=== PATIENT | female | born 1950 | race Caucasian/White ===

== ENCOUNTER 2023-01-09 21:17 | Emergency (ER) | payer MEDICARE, OTHER, SELFPAY ==
--- NOTE | 2023-01-09 21:21 | XRR_ITS ---
PROCEDURE INFORMATION: Exam: XR Right Wrist Exam date and time: 01/09/2023 9:36 PM Age: 72 years old Clinical indication: Injury or trauma; Fall; Blunt trauma (contusions or hematomas); Shoulder and wrist; Right TECHNIQUE: Imaging protocol: Radiologic exam of the right wrist. Views: 3 or more views. COMPARISON: No relevant prior studies available. FINDINGS: Bones/joints: Moderate to severe osteoarthritis base of thumb. Comminuted intra-articular fracture lucencies distal radius. Dorsal displacement and angulation deformity of bone fragments. Soft tissues: Soft tissue swelling and deformity. XR/XR wrist RT min 3V* [id number] IMPRESSION: Right distal radius fracture.
[2023-01-09 21:29] VITALS: BP 155/81; PULSE 87; RESP 18; TEMP 36.6; O2SAT 98; BMI 24.2
[2023-01-09 21:32] VITALS: BP 159/89; PULSE 86; RESP 18; TEMP 36.5; O2SAT 99
--- NOTE | 2023-01-09 21:34 | XRR_ITS ---
PROCEDURE INFORMATION: Exam: XR Right Shoulder Exam date and time: 01/09/2023 9:42 PM Age: 72 years old Clinical indication: Injury or trauma; Fall; Blunt trauma (contusions or hematomas); Shoulder and wrist; Right TECHNIQUE: Imaging protocol: Radiologic exam of the right shoulder. Views: 2 or more views. COMPARISON: No relevant prior studies available. FINDINGS: Bones/joints: Acromioclavicular joint hypertrophic osseous spurring. Negative for fracture. Normal joint alignment. Negative for bone erosion. Soft tissues: Normal. XR/XR shoulder RT min 2V* [id number] IMPRESSION: Negative for acute pathology.
--- NOTE | 2023-01-09 22:02 | ED_ITS ---
HPI - Fall General: Chief Complaint: Fall Stated Complaint: right wrist injury Time Seen by Provider: 01/09/23 21:48 Source: patient Mode of arrival: ambulatory Limitations: no limitations History of Present Illness: 72-year-old female states she was rollerskating tonight and fell. She fell onto her right arm she has right wrist pain with obvious deformity she rates that pain a 2 out of 10 she has some mild right shoulder pain she denies any other injuries denies hitting her head. Associated symptoms-after fall: Denies abdominal pain, chest pain, headache(s) or neck pain Review of Systems Const: Denies: fever(s), chills, body aches or change in appetite Eyes: Denies: blurry vision or eye discomfort ENMT: Denies: throat pain or dental pain Card: Denies: chest pain Resp: Denies: dyspnea GI: Denies: abdominal pain, nausea, vomiting or diarrhea : Denies: dysuria Musc: Denies: neck pain or back pain Skin/Breast: Denies: rash Neuro: Denies: headache(s) Psych: Denies: depression Ari/Lymph: Denies: easy bruising All/Imm: Denies: urticaria Physical Exam Const: COMMON NORMALS: no acute distress, patient oriented x3 and healthy appearing HENMT: COMMON NORMALS: normocephalic and atraumatic HEAD & SCALP: normocephalic and atraumatic Eye: COMMON NORMALS: conjunctivae normal CONJUNCTIVA: Yes conjunctivae normal Neck/C-Spine: COMMON NORMALS: full ROM and supple Chest: COMMONS NORMALS: normal inspection of the chest Resp: COMMON NORMALS: normal respiratory effort Cardio: COMMON NORMALS: regular rate and No murmurs present (Cardio) RATE: regular rate Extremity: COMMON NORMALS: full ROM NARRATIVE EXTREMITY EXAM: Tenderness over right wrist with obvious deformity distal pulses and sensation intact Neuro: COMMON NORMALS: patient oriented x3, moves all extremities and no focal motor deficits Psych: COMMON NORMALS: mental status grossly normal, Normal thought process present and cooperative THOUGHT PROCESS: Normal thought process present Skin: COMMON NORMALS: no rashes or lesions noted and no wounds GENERAL SKIN EXAM: no rashes or lesions noted Course Vital Signs: Vital signs: Vital Signs Temperature 97.7 F 01/09/23 21:32 Pulse Rate 86 01/09/23 21:32 Respiratory Rate 18 01/09/23 21:32 Blood Pressure 159/89 01/09/23 21:32 Pulse Oximetry 99 01/09/23 21:32 Oxygen Delivery Me thod Room Air 01/09/23 21:32 MDM - Fall Medical Decision Making Patient presents here with fall with right wrist fracture she has obvious def ormity to that wrist x-ray shows a fracture. Did place in a splint sling will get follow-up orthopedics. Lab Data Radiology Impressions Wrist X-Ray 01/09/23 21:21 IMPRESSION: Right distal radius fracture. Shoulder X-Ray 01/09/23 21:34 IMPRESSION: Negative for acute pathology. Discharge Plan Discharge Patient Disposition: Home Clinical Impression: Fracture of wrist Qualifiers: Encounter type: initial encounter Fracture type: closed Laterality: right Qualified Code(s): S62.101A - Fracture of unspecified carpal bone, right wrist, initial encounter for closed fracture Condition: Stable Discharge Orders: Discharge ED (Routine); Ordered 01/09/23 Ordered By: Echo Reyez Referrals: Yfn Howell DO [Physician] - 1-3 days Discharge Diet: Advance as tolerated Discharge Activity: Resume usual activity Patient Instructions: Wrist Fracture in Adults (ED) Coding Level of Care Code ED Shipping And Receiving Assistant for Stephen Arndt
[2023-01-09 23:22] VITALS: BP 152/81; PULSE 78; RESP 18; O2SAT 100
--- NOTE | 2023-01-11 08:33 | DCPLANNER ---
Addendum entered by Ceci Saldana 01/14/23 07:32: Patient attended appointment at ortho Addendum entered by Ceci Saldana 01/11/23 14:59: Patient has a follow up appointment scheduled for Thursday, January 12, 2023 at 11:[address] Howell at ortho. Original Note: publications manager had message to schedule a follow up appointment for patient with ortho. publications manager sent patients information to the front office staff at ortho. Patients information will be printed and reviewed. Clinic will call patient with appointment information.
--- NOTE | 2023-01-11 14:57 | DCPLANNER ---
Addendum entered by Ceci Saldana 01/11/23 16:08: Patient called rn case management back, declining getting a primary care at this time. Original Note: junior assistant manager called patient due to no primary care physician - no answer at this time.
== END 2023-01-09 23:30 | disposition home or self-care (01) ==
PROVIDERS: Emergency Provider Emergency Medicine
DX: S52.501A Unspecified fracture of the lower end of right radius, initial encounter for closed fracture (principal); W19.XXXA Unspecified fall, initial encounter; Y93.51 Activity, roller skating (inline) and skateboarding
CPT/HCPCS: 29125; 73030; 73110; 99283

== ENCOUNTER 2023-01-10 18:46 | Emergency (ER) | payer MEDICARE, OTHER, SELFPAY ==
[2023-01-10 19:15] VITALS: BP 155/83; PULSE 78; RESP 16; TEMP 36.6; O2SAT 97; BMI 25.0
[2023-01-10 19:21] VITALS: BP 168/84; PULSE 73; TEMP 36.6; O2SAT 98
--- NOTE | 2023-01-10 20:54 | W.ED.EXTPRO ---
HPI - Extremity Problem General: Chief complaint: Extremity Injury, Upper Stated complaint: Broken wrist - Swelling of Arm Time Seen by Provider: 01/10/23 20:00 Source: patient Mode of arrival: ambulatory Limitations: no limitations History of Present Illness: 72-year-old female is seen here yesterday she had a wrist fracture she is placed in a splint states today she noticed some swelling to her upper arm along with her hand went to get checked out she denies any increase in pain denies any fevers. Denies any new injuries Associated symptoms: Deny chest pain, fever(s) or rash Review of Systems Const: Denies: fever(s), chills, body aches or change in appetite ENMT: Denies: throat pain or dental pain Card: Denies: chest pain Resp: Denies: dyspnea GI: Denies: abdominal pain, nausea, vomiting or diarrhea Musc: Reports: extremity swelling; Denies: neck pain or back pain Skin/Breast: Denies: rash Neuro: Denies: headache(s) Physical Exam Const: COMMON NORMALS: no acute distress, patient oriented x3 and healthy appearing HENMT: COMMON NORMALS: normocephalic and atraumatic HEAD & SCALP: normocephalic and atraumatic Eye: COMMON NORMALS: conjunctivae normal CONJUNCTIVA: Yes conjunctivae normal Neck/C-Spine: COMMON NORMALS: full ROM and supple Chest: COMMONS NORMALS: normal inspection of the chest Resp: COMMON NORMALS: normal respiratory effort Cardio: COMMON NORMALS: regular rate and No murmurs present (Cardio) RATE: regular rate GI: INSPECTION: Yes normal to inspection Extremity: COMMON NORMALS: full ROM NARRATIVE EXTREMITY EXAM: sugar-tong splint in place to right arm she does have swelling in her right hand no pain good cap refill Neuro: COMMON NORMALS: patient oriented x3, moves all extremities and no focal motor deficits Psych: COMMON NORMALS: mental status grossly normal, Normal thought process present and cooperative THOUGHT PROCESS: Normal thought process present Skin: COMMON NORMALS: no rashes or lesions noted and no wounds GENERAL SKIN EXAM: no rashes or lesions noted Course Vital Signs: Vital signs: Vital Signs Temperature 97.8 F 01/10/23 19:21 Pulse Rate 73 01/10/23 19:21 Respiratory Rate 16 01/10/23 19:15 Blood Pressure 168/84 01/10/23 19:21 Pulse Oximetry 98 01/10/23 19:21 Oxygen Delivery Me thod Room Air 01/10/23 19:21 MDM - Extremity (Nontraumatic) Medical Decision Making Patient presents here with right wrist and arm swelling she is seen here yesterday for wrist fracture she has no signs of compartment syndrome no pain she has good cap refill she does have some swelling in her hand she is to keep her arm elevated and to ice she is well-appearing and stable for discharge at this time Medical Records I reviewed the patient's medical records. Discharge Plan Discharge Patient Disposition: Home Clinical Impression: Swelling of right upper extremity, Fracture of wrist Condition: Stable Discharge Orders: Discharge ED (Routine); Ordered 01/10/23 Ordered By: Echo Reyez Discharge Diet: Advance as tolerated Discharge Activity: Resume usual activity Patient Instructions: Opioid Safety, Pain Management Coding Level of Care Code ED Information Security Systems Instructor for Stephen Arndt
[2023-01-10 21:04] VITALS: PULSE 71
[2023-01-10 21:16] VITALS: PULSE 78; RESP 17; O2SAT 97
== END 2023-01-10 21:17 | disposition home or self-care (01) ==
PROVIDERS: Emergency Provider Emergency Medicine
DX: M79.89 Other specified soft tissue disorders (principal); S62.101A Fracture of unspecified carpal bone, right wrist, initial encounter for closed fracture; X58.XXXA Exposure to other specified factors, initial encounter
CPT/HCPCS: 99281

== ENCOUNTER → 2023-01-12 10:57 | Outpatient (BNVA) | payer MEDICARE, OTHER, SELFPAY | PROVIDERS: Visit Provider Student in an Organized Health Care Education/Training Program | DX: S52.571A Other intraarticular fracture of lower end of right radius, initial encounter for closed fracture; W18.30XA Fall on same level, unspecified, initial encounter; Y93.51 Activity, roller skating (inline) and skateboarding | CPT/HCPCS: 26605; 29075; 99204 ==

== ENCOUNTER 2023-01-20 06:38 | Day surgery (SDC) | payer MEDICARE, OTHER, SELFPAY ==
[2023-01-19 08:39] VITALS: BMI 24.3
[2023-01-20] VITALS (15 sets, daily range): BP systolic 121–181; BP diastolic 60–89; PULSE 75–90; RESP 15–23; TEMP 36.2–36.5; O2SAT 95–100
--- NOTE | 2023-01-20 | XR_ITS ---
WS: [id number] Right wrist, C-arm fluoroscopy, 01/20/2023 Clinical Data: ORIF right distal radius Comparison: Right wrist, 01/09/2023 Findings: There is internal fixation of the distal right radial fracture with a plate and multiple screws. The distal right ulna is intact. XR/XR wrist RT 2V [id number] Impression: Internal fixation of distal right radial fracture.
--- NOTE | 2023-01-20 06:52 | P.HPUD_ITS ---
Surgery/Procedure H&P Update DATE OF PROCEDURE: January 20, 2023 DATE H&P PERFORMED: 01/12/23 CHANGES TO PREVIOUS DOCUMENTATION: None. No changes since HPI/office visit on 01/12/2023. Patient has a significantly displaced angulated intra-articular right distal radius fracture with Dr. About treatment options she understands risk benefits complication alternatives with surgery elects proceed with surgical invention. All questions answered. PREOP DIAGNOSIS: Right distal radius fracture PRIMARY INDICATION FOR PROCEDURE: Right distal radius fracture intra-articular PLANNED PROCEDURE: Operation Date: 01/20/23 09:30 Proposed Procedures p Right Distal Radius Open Reduction Internal Fixation 09594, S5 2.502A,T14.8XXA(Right) - Yfn Howell DO
[2023-01-20] MEDS: acetaminophen 1,000 MG/100 ML PIGGYBACK 400 MG IV (07:09)
[2023-01-20] MEDS: ketorolac 30 mg/mL INJ IVP (07:10)
[2023-01-20] MEDS: sodium chloride 0.9% 1,000 ML 30 ML IV (07:10)
--- NOTE | 2023-01-20 07:37 | ECG_ITS ---
[facility] Test Date: 2023-01-20 Pat Name: Adriana Bettencourt Department: Room: Gender: Female Functional Analyst: : 1950 Requested By: Bernard Chong Order Number: [id number] Vicente MD: Mckay Xie M.D. Measurements Intervals Adrian Rate: 66 P: 61 [place]: 171 QRS: 38 QRSD: 85 T: 51 QT: 363 QTc: 382 Interpretive Statements SINUS RHYTHM WITH SINUS ARRHYTHMIA No previous ECG available for comparison Electronically Signed On 01-20-2023 23:30:58 CDT by Mckay Xie M.D. [id number]
[2023-01-20] MEDS: HYDROmorphone 1 mg/mL INJ 1 mL 0.5 MG IVP (08:40)
--- NOTE | 2023-01-20 08:56 | ANES.PREANE2 ---
Pre-Anesthetic Assessment Height/Weight: Height 1.7 m Weight 70.307 kg Temp Pulse Resp BP Pulse Ox O2 Del Method 97.6 F 87 18 181/78 98 Room Air 01/20/23 06:56 01/20/23 06:56 01/20/23 06:56 01/20/23 06:56 01/20/23 06:56 01/20/23 06:56 Preop Diagnosis: Right distal radius fracture Operation Date: 01/20/23 09:30 Proposed Procedures p Right Distal Radius Open Reduction Internal Fixation 63191, S52.502A,T14.8XXA(Right) - Yfn Howell DO Familial anesthetic complications: none Was Beta Sharifa taken within 24 hours: N/A Was Clonidine taken within 24 hours: N/A Last intake: Intake Last Liquid Date 01/19/23 Last Liquid Time 21:00 Last Solid Date 01/19/23 Last Solid Time 19:30 Social No alcohol and No tobacco Exam alert, oriented x 3, clear to auscultation bilaterally and regular rate & rhythm Airway Submandibular: within normal limits Cervical ROM: within normal limits Mallampati: Class II Dentition: full History/ROS No significant history except as noted Anesthetic Plan ASA status: 2 Anesthesia: Choice and Regional (specify below) (right interscalene) Medications/Allergies Home Medications Medication Instructions Recorded Confirmed Last Taken Type acetaminophen 500 mg tablet 500 mg PO Q6H PRN Pain (Scale 01/19/23 01/19/23 01/18/23 History Score 7-10) ascorbic acid 125 mg-collagen, cap PO 01/19/23 Unknown History hydrolyzed 740 mg capsule (Collagen Plus Vitamin C) aspirin 325 mg tablet 325 mg PO DAILY 01/19/23 01/19/23 01/05/23 History calcium carb-ergocalciferol (vit 600 tab PO 1XD 01/19/23 01/19/23 01/18/23 History D2) 600 mg calcium-200 unit tablet collagen,hydrolysate 500 mg-biotin 1,500 cap PO 1XD 01/19/23 01/19/23 01/18/23 History 800 mcg-ascorbic acid 50 mg capsule (Collagen 1500 Plus C) garlic 2,000 mg PO DAILY 01/19/23 01/19/23 01/12/23 History lysine 500 mg capsule 500 mg PO 1XD 01/19/23 01/19/23 01/18/23 History magnesium 100 mg capsule 100 mg PO DAILY 01/19/23 01/19/23 01/18/23 History hydrocodone 5 mg-acetaminophen 325 1 tab PO Q6H PRN pain 7 days #28 01/20/23 Unknown Rx mg tablet tabs Allergies Allergy/AdvReac Type Severity Reaction Status Date / Time No Known Allergies Allergy Verified 01/19/23 08:21 Current Medications Generic Name Dose Route Start Last Admin Trade Name Laura PRN Reason Stop Dose Admin Hydromorphone HCl 0.5 mg 01/20/23 06:41 01/20/23 08:40 Hydromorphone 1 Mg/Ml Inj 1 Ml IVP 0.5 mg ONCE PRN Administration For preop pain/anxiety Sodium Chloride 1,000 mls @ 30 mls/hr 01/20/23 06:45 01/20/23 07:10 Sodium Chloride 0.9% IV 01/21/23 06:44 30 mls/hr .Q24H NIKHIL Administration Data Anesthesia Cardiac Studies: No Data to Display Anesthesia Procedures Nerve Block Nerve Block 1: Main Anesthesia: other (GA vs MAC) Time Out Performed: Yes Consent: requested by attending/covering physician, from patient, risks and benefits reviewed and patient agrees to proceed Nerve block location: interscalene (right) Anesthesia monitors applied: pulse oximetry, EKG, BP cuff and oxygen Nerve block position: semi sitting Anesthetic Used: ropivicaine 0.5% Amount of anesthesia used (mL): 30 Ultrasound used to: recognize landmarks and visualize and ID brachial plexus Nerve Stimulator Used?: No Interscalene/Femoral BLK: 2 stimuplex 22 g needle used for position and inplane approach Injection: neg aspiration of heme Patient Tolerated Procedure: well Complications: none
[2023-01-20] MEDS: ceFAZolin 2,000 MG in sodium chloride 0.9% (plus) 50 ML 100 MG IV (09:09)
--- NOTE | 2023-01-20 10:32 | PM.OP2 ---
Brief Operative Note Date of procedure: 01/20/23 Pre-op diagnosis: Right distal radius fracture Post-op diagnosis: same (4 part intra-articular) Procedure Done: Right distal radius open reduction internal fixation 4 part intra-articular Surgeon: Yfn Howell Estimated blood loss (mL): 5 Complications: None Post-op Plan: Patient taken to PACU in stable condition recovering well. Patient will receive appropriate discharge structure as well as pain medication postoperatively. Maintain splint until follow-up nonweightbearing right upper extremity. Patient follow-up in the orthopedic office in 2 weeks. Patient understands and agrees with current plan. All questions answered. Condition: stable Disposition: same day Coding Level of Care Code Acute Code for Stephen Fwfili
--- NOTE | 2023-01-20 10:33 | PM.PACU ---
PACU note Narrative: Patient taken to PACU in stable condition recovering well. Pain controlled. Patient received regional anesthesia unable to assess motor or sensory secondary to this. Splint on in place clean dry and intact patient fingertips are warm well-perfused brisk capillary refill less than 2-second Exam: awake Disposition: discharged
--- NOTE | 2023-01-20 10:34 | P.OP_ITS ---
Operative Report Date of procedure: January 20, 2023 Pre-op diagnosis: Preop Diagnosis Right distal radius fracture Procedure: Post-op diagnosis: Same, 4 part intra-articular Procedure done: Right distal radius open reduction internal fixation, 4 part intra-articular Implants: Arthrex Right 3-hole narrow volar locking plate Combination of locking and nonlocking screws 2.7 mm distal Combination of locking and nonlocking screws 3.5 mm proximal Surgeon: Yfn Howell DO Anesthesia: Nerve Block (Regional) Estimated blood loss: 5 mL Tourniquet time: 27 minutes IV fluids: See anesthesia record Complications: None Findings: See operative report narrative Condition: stable Disposition: same day Brief History: Patient is a 72-year-old female who presented to my office for a [id number]-[id number]-gwefhrptk right distal radius fracture.? Patient has significant comminution and shortening as well as dorsal angulation she is very active with her right hand and at this point time through shared decision making she like to proceed with a right distal radius ORIF. We had a detailed discussion in the office about nonoperative and operative intervention.? At this point time I feel through shared decision best option would be open reduction internal fixation she is active and already has a considerable deformity?? as result through shared decision making patient would like to proceed with ORIF right distal radius fracture.? Detail the risk benefits complication alternatives to treatment option.? Understanding risk for surgery patient elects to proceed with surgical intervention.? All questions been answered at this time. Procedure: Patient seen and evaluated in the preoperative holding area.? Consent reviewed and signed with patient.? Correct extremities were marked and consent was reviewed and signed.? Patient was seen and evaluated by anesthesia department.? Underwent regional anesthesia. Once cleared for surgery pt was taken back to the operative suite.? Patient was then transported into the operative suite transferred furred to an OR table all bony prominences well-padded patient was appropriate secured to bed in supine position.? An armboard was applied to the right upper extremity.? The right upper extremity had a nonsterile tourniquet applied.? Patient subsequently was then prepped and draped in standard orthopedic fashion she underwent anesthesia per the anesthesia department.? A final timeout was performed.? Patient received appropriate preoperative antibiotics. Esmarch was used exsanguinate the right upper extremity and tourniquet was insufflated to 250 mmHg. A standard modified FCR volar approach was performed to the right distal radius.? Sharp scalpel incision through skin and subcutaneous tissue.? I then switched to Littler dissection scissors identify the FCR tendon releases out of the sheath both proximally and distally mobilized the tendon ulnarly and then trimble bsequently incised the floor of the FCR tendon sheath with care to just incise the floor.? I then bluntly sweep the FPL tendon muscle belly ulnarly and placed blunt self-retaining retractor.? At this point time I direct visualization of the pronator quadratus which was incised in standard L fashion off the radial and distal border in the distal radius and fracture site was scraped clean of interposed muscle belly.? I then identified the 4 part intra-articular distal radius fracture.? This was subsequently opened above and freed of interposing muscle belly as well as periosteum and fracture hematoma.? I did have to utilize my [place] which was placed through the fracture pattern and disengage the fracture and performed manual manipulation and anatomic reduction of the distal radius fracture.? ?Once satisfied with reduction and had appropriate anatomic reduction of the volar cortex.? This was confirmed with mini C arm in multiple orthogonal imaging.? At this point time? I selected a Arthrex anatomic distal radius plate utilizing a narrow 3-hole plate which would have appropriate spread distally.? This was then placed up to the distal radius while maintaining my reduction, pins were placed distally and proximally to confirm appropriate placement of the plate along the distal radius.? Minor adjustments were made and once I was satisfied I then subsequently drilled a bicortical 3.5 screw proximally in the oblong hole to allow for appropriate sliding of the distal radius plate appropriately to perfect position on the distal radius.? This had excellent fixation and purchase and brought the plate to bone.? While maintaining my reduction I then confirmed in multiple orthogonal imaging that my plate was in appropriate position.? Once satisfied with my position I then subsequently placed the peek targeting guide on the distal locking screws with Arthrex.? The locking guide was then subsequently loaded and I subsequently drilled and placed a fully threaded cortical screw to compress the plate to bone for the distal fracture fragment.? This was performed with plan to then remove this and placed a shorter locking screw had bicortical fixation with excellent purchase and appropriate reduction of my volar tilt and bringing plate to bone of the distal fragment and plate.? Once I was satisfied with my plate position as well as reduction of the distal radius which was confirmed on AP oblique and lateral imaging I then subsequently drilled measured and placed 3 locking screws around this cortical screw.? Then I subsequently removed the cortical screw and placed a shorter locking screw that did not penetrate the dorsal cortex.? This completed my distal fixation.? I did utilize mini C arm to confirm appropriate placement of the screws these were all within the distal radius and no joint involvement within the radiocarpal joint or the DRUJ.? These had appropriate subchondral support and maintenance of reduction and fixation of the distal radius fracture.? ?I then turned my attention and I subsequently drilled and placed an additional cortical screw from a most proximal portion of the plate.? And then I screwed in the locking guides for my final to screws proximally these were then subsequently drilled measured and appropriate length locking screws were then placed proximally with excellent fixation and locking technology into the plate.? This completed my construct.? The peek guide was subsequently removed and final imaging of the right distal radius open reduction internal fixation was taken of AP lateral as well and is orthogonal imaging.? I then took a inclination view which showed my radial styloid screw was out of the penetration of the joint.? All my distal screws were appropriate length did not penetrate dorsal cortex and did not penetrate the joint.? This completed my fixation.? Smooth wrist range of motion was then noted with no evidence of clicking. Wrist was then taken through pronation supination and stressed the DRUJ which was found to be stable.? The wound was then thoroughly irrigated.? Tourniquet was then subsequently deflated.? Hemostasis satisfactory with bipolar electrocautery.? I then subsequently placed interrupted 3-0 Vicryl sutures for subcutaneous tissue and then subsequently placed a nylon the skin for closure.? Incision was then dressed with Xeroform 4 x 4's Kerlix cast padding and a volar Ortho-Glass splint was then applied with Jesus wrap and placed in a sling.? Disposition: Patient taken to PACU in stable condition recovering well receive appropriate discharge instructions as well as pain medication postoperatively.? Maintain splint until follow-up.? Nonweightbearing to operative upper extremity We will follow-up with Dr. Howell in the office in 2 weeks.? If any questions or concerns feel free to contact the office.
[2023-01-20] MEDS: fentaNYL 50 mcg/mL INJ 2mL IVP (10:45)
[2023-01-20] MEDS: HYDROcodone-acetaminophen 5-325 mg Tablet 1 TAB PO (11:33)
--- NOTE | 2023-01-20 15:37 | ANE.PACU2 ---
Inpatient post-anesthesia follow up: Airway intact: Yes Vital signs: Temperature 97.1 F Pulse Rate 80 Respiratory Rate 16 Blood Pressure 151/78 Pulse Oximetry 97 Oxygen Delivery Me thod Room Air Oxygen Flow Rate Fraction of Inspir ed Oxygen Hydration adequate: Yes Nausea and vomiting: No Pain level: 2 Mental status: Baseline
== END 2023-01-20 12:09 | disposition home or self-care (01) ==
PROVIDERS: Visit Provider Student in an Organized Health Care Education/Training Program
PROC: (CPT 25609; principal; 2023-01-20 09:30)
DX: S52.571A Other intraarticular fracture of lower end of right radius, initial encounter for closed fracture (principal); X58.XXXA Exposure to other specified factors, initial encounter; Z79.82 Long term (current) use of aspirin
CPT/HCPCS: 25609; 73100; 76000; 93005; C1713; J0131; J0690; J1100; J1170; J1885; J2405; J2704; J2795; J3010; J3490; J7030

== ENCOUNTER → 2023-02-02 07:21 | Outpatient (BNVA) | payer MEDICARE, OTHER, SELFPAY | PROVIDERS: Visit Provider Student in an Organized Health Care Education/Training Program | DX: S52.501A Unspecified fracture of the lower end of right radius, initial encounter for closed fracture (principal); X58.XXXA Exposure to other specified factors, initial encounter | CPT/HCPCS: 73110; 97760; 99024; L3982 ==

== ENCOUNTER 2023-02-02 11:13 | Outpatient (CLI) | payer MEDICARE, OTHER, SELFPAY | END 2023-02-02 11:14 | disposition home or self-care (01) | LOC: SPT 11:15 | PROVIDERS: Visit Provider Student in an Organized Health Care Education/Training Program | DX: S52.501A Unspecified fracture of the lower end of right radius, initial encounter for closed fracture (principal); X58.XXXA Exposure to other specified factors, initial encounter | CPT/HCPCS: 97760; 99024; L3982 ==

== ENCOUNTER 2023-02-19 06:00 | Outpatient (RCR) | payer MEDICARE, OTHER, SELFPAY | END 2023-03-20 23:59 | disposition home or self-care (01) | LOC: SOT 06:00 | PROVIDERS: Visit Provider Physician Assistant | DX: S52.502D Unspecified fracture of the lower end of left radius, subsequent encounter for closed fracture with routine healing (principal); W18.39XD Other fall on same level, subsequent encounter | CPT/HCPCS: 97022; 97110; 97140; 97166; 97530; G0283 ==

== ENCOUNTER → 2023-02-25 08:02 | Outpatient (BNVA) | payer MEDICARE, OTHER, SELFPAY | PROVIDERS: Visit Provider Physician Assistant | DX: S52.501A Unspecified fracture of the lower end of right radius, initial encounter for closed fracture (principal); X58.XXXA Exposure to other specified factors, initial encounter | CPT/HCPCS: 73110; 99024 ==

== ENCOUNTER 2023-03-21 06:00 | Outpatient (RCR) | payer MEDICARE, OTHER, SELFPAY | END 2023-04-20 23:59 | disposition home or self-care (01) | LOC: SOT 06:00 | PROVIDERS: Visit Provider Physician Assistant | DX: S52.501D Unspecified fracture of the lower end of right radius, subsequent encounter for closed fracture with routine healing (principal); X58.XXXD Exposure to other specified factors, subsequent encounter | CPT/HCPCS: 97022; 97110; 97140 ==

== ENCOUNTER → 2023-04-08 08:06 | Outpatient (BNVA) | payer MEDICARE, OTHER, SELFPAY | PROVIDERS: Visit Provider Physician Assistant | DX: Z98.890 Other specified postprocedural states; S52.501D Unspecified fracture of the lower end of right radius, subsequent encounter for closed fracture with routine healing; X58.XXXD Exposure to other specified factors, subsequent encounter | CPT/HCPCS: 73100; 99024; 99213 ==

== ENCOUNTER → 2023-07-06 09:20 | Outpatient (BNVA) | payer MEDICARE, OTHER, SELFPAY | PROVIDERS: Visit Provider Physician Assistant | DX: Z98.890 Other specified postprocedural states (principal); S52.501D Unspecified fracture of the lower end of right radius, subsequent encounter for closed fracture with routine healing; X58.XXXD Exposure to other specified factors, subsequent encounter | CPT/HCPCS: 73110; 99213 ==

== ENCOUNTER → 2024-02-01 09:00 | Outpatient (BNVA) | payer MEDICARE, OTHER, SELFPAY | PROVIDERS: Visit Provider Physician Assistant | DX: Z98.890 Other specified postprocedural states (principal); S52.501D Unspecified fracture of the lower end of right radius, subsequent encounter for closed fracture with routine healing; X58.XXXD Exposure to other specified factors, subsequent encounter | CPT/HCPCS: 73110; 99213 ==